=== PATIENT | male | born 1990 | race Caucasian/White ===

== ENCOUNTER 2022-10-19 07:37 | Day surgery (SDC) | payer MEDICAID, OTHER ==
[~2022-10-19 07:37] MED LIST: Marcaine Mpf 0.5% Vial 30 Ml ONE; XYLOCAINE 1% HCL 20 ML MDV ONE
[2022-10-19] MEDS ORDERED: EXPAREL 133 MG/10 ML VIAL IJ ONE (07:38)
[2022-10-19] MEDS ORDERED: Lactated Ringers 1,000 ML IV SCH (08:00)
[2022-10-19] MEDS ORDERED: CEFAZOLIN 2 GM-D5W BAG** 2 GM/50 ML ML IV SCH (08:00)
[2022-10-19 08:15] LABS: Hematocrit 35.5 % (42-50); Hemoglobin 11.3 g/dL (12.5-18.0); Mean Cell Volume 92.2 fL (78-100); Mean Corpuscular Hemoglobin 29.4 pg (26-32); Mean Corpuscular Hgb Concent. 31.8 g/dL (32-36); Mean Platelet Volume 8.7 fL (7.5-11.0); Platelet Count 371 x10^3/uL (150-450); Red Blood Count 3.85 x10^6/uL (4.1-5.6); Red Cell Distribution Width 12.8 % (11.5-14.0); White Blood Count 6.3 x10^3/uL (4.0-10.5)
[2022-10-19 08:30] LABS: ALBUMIN 4.2 g/dL (3.5-5.0); ALKALINE PHOSPHATASE 89 U/L (38-126); ANION GAP 14.3 MEQ/L (5-15); BLOOD UREA NITROGEN 17 mg/dL (9-20); CHLORIDE 103 mmol/L (98-107); Calcium 9.8 mg/dL (8.4-10.2); Carbon Dioxide 27 mmol/L (22-30); Creatinine 1 0.83 mg/dL (0.66-1.25); EST GLOMERULAR FILTRATION RATE > 60.0 ML/MIN; Glucose 141 mg/dL (74-106); INR 0.93 (0.8-3.0); PROTIME 10.2 SECONDS (9.4-12.5); PTT 26.2 SECONDS (25.1-36.5); Potassium 4.3 mmol/L (3.5-5.1); SGOT/AST 35 U/L (17-59); SGPT/ALT 25 U/L (0-50); SODIUM 139 mmol/L (137-145); Total Protein 7.4 g/dL (6.3-8.2)
[2022-10-19] MEDS ORDERED: Reglan 10 MG/2 ML IV ONE (09:18)
[2022-10-19] MEDS ORDERED: Pepcid 20 MG VIAL IV ONE ×2 (09:18→09:19)
[2022-10-19] MEDS ORDERED: Transderm Scop 1.5MG Patch TOP PRN (09:18)
[2022-10-19] MEDS ORDERED: Transderm Scop 1.5MG Patch ONE (09:19)
[2022-10-19] MEDS ORDERED: Reglan 10 MG/2 ML ONE (09:19)
[2022-10-19] MEDS ORDERED: Sensorcaine 0.25% 10 ML ONE (09:23)
[2022-10-19] MEDS ORDERED: Marcaine Mpf 0.5% Vial 30 Ml ONE (09:23)
[2022-10-19] MEDS ORDERED: SUBLIMAZE 100 MCG/2 ML ONE (09:25)
[2022-10-19] MEDS ORDERED: Versed 2 MG/2 ML Injection ONE ×2 (09:25→10:29)
[2022-10-19] MEDS ORDERED: Epinephrine Preservative Free 1 MG/ML ONE (09:26)
[2022-10-19] MEDS ORDERED: DIPRIVAN 200 MG/20 ML IV ONE (10:26)
[2022-10-19] MEDS ORDERED: Zemuron 100 MG/10 ML ONE ×6 (10:26→14:14)
[2022-10-19] MEDS ORDERED: Zofran 4 MG/2 ML VIAL ONE (10:27)
[2022-10-19] MEDS ORDERED: Decadron 4 MG INJ ONE ×2 (10:27→11:20)
[2022-10-19] MEDS ORDERED: Proair Hfa MDI IH ONE (10:40)
[2022-10-19] MEDS ORDERED: REMIFENTANIL HCL IV ONE (10:48)
[2022-10-19] MEDS ORDERED: Lactated Ringers 2,000 ML IV ONE (10:55)
[2022-10-19] MEDS ORDERED: TORAdol 30 mg Injection ONE (14:36)
--- NOTE | 2022-10-19 14:56 | XRAY ---
Indication: Right foot Charcot reconstruction. Intraoperative fluoroscopy provided for 9 minutes 49 seconds. 44 digital spot images submitted for interpretation ultimately demonstrates talocalcaneal and 1st/2nd tarsometatarsal fusion surgery with multiple fixation hardware. Correlate with intraoperative findings/report.
[2022-10-19 15:10] LABS: Appearance Clear (Clear); Bilirubin Negative (Negative); Blood Moderate (Negative); Glucose, Urine Negative (Negative); Ketones Negative (Negative); Leukocyte Esterase Negative (Negative); Nitrite Negative (Negative); Ph 5.5 (4.6-8.0); Protein,Urine Dip 100 (Negative); Specific Gravity 1.015 (1.005-1.030); Urobilinogen 0.2 mg/dL (0.2)
[2022-10-19 15:14] LABS: Epithelial Cells Few /HPF (None Seen)
[2022-10-19 15:15] LABS: Bacteria None Seen /HPF (None Seen)
[2022-10-19] MEDS ORDERED: Compazine 10 MG/2 ML ONE (15:24)
[2022-10-19 16:39] VITALS: BP 172/93; PULSE 107; O2SAT 97
--- NOTE | 2022-10-19 22:46 | XRAY ---
Nine minutes 49 seconds of fluoroscopy was used in surgery for a right foot Charcot reconstruction.
--- NOTE | 2022-10-22 12:21 | OP ---
SURGERY DATE/TIME: 10/19/2022 1026 PREOPERATIVE DIAGNOSES: 1) Charcot osteoarthropathy right foot. 2) Diabetes mellitus type I. 3) Diabetic peripheral neuropathy secondary to diabetes mellitus type I. 4) Pain right foot. 5) Gastrocnemius equinus. POSTOPERATIVE DIAGNOSES: 1) Charcot osteoarthropathy right foot. 2) Diabetes mellitus type I. 3) Diabetic peripheral neuropathy secondary to diabetes mellitus type I. 4) Pain right foot. 5) Gastrocnemius equinus. PROCEDURES: 1) Gastrocnemius resection. 2) Subtalar joint arthrodesis. 3) Talonavicular joint arthrodesis. 4) Multiple transverse tarsometatarsal joint arthrodesis. SURGEON: Michael Pressley DPM. TOUCH UP PAINTER: None. ANESTHESIA: General. HEMOSTASIS: Thigh tourniquet set to 350 mm of Mercury for 120 total tourniquet minutes. ESTIMATED BLOOD LOSS: Approximately 150 cc. MATERIALS: Two - 7.0 x 85 mm 16 mm threaded screws for the subtalar joint as well as 6.5 x 52 mm headless compression screw. One - 7.0 x 150 mm fully threaded beam, a 4.5 x 150 mm fully threaded beam for the second tarsometatarsal and subtalar joint as well as 7 hole one-third tubular plate with a combination of cortical and cancellous screws, 5 cc of Bonus Triad with bone marrow aspirate, 3-0 Nylon, 4-0 Monocryl, 2-0 Vicryl, 3-0 Nylon, 2-0 Nylon, two Suturegards. INJECTABLES: See anesthesia report for details. INDICATION FOR SURGERY: Scotty is a very pleasant 32-year-old male who presented to my office with complaint of right foot pain. The patient indicates that he is fully neuropathic. In his young age, he is a controlled type I diabetic. However, he is also neuropathic as a result of the diabetes and to some degree alcoholic neuropathy as well. From that standpoint the patient developed Charcot osteoarthropathy. He had a significant amount of trouble based on his outdated insurance being sent to multiple providers and being rejected. The patient presented to my office with concerns of the right foot pain and the fact that there has been a delay in care. The patient was informed of his pathology and was notified that he does have Charcot osteoarthropathy which is secondary to his peripheral neuropathy. The patient was presented options in regards to treatment. Discussion was held at length at the risks and complications of Charcot osteoarthropathy and the potential outcomes. With our discussion the patient was made to understand that due to the fact that his deformity was unstable. However in the process of consolidating, the patient would likely need surgical intervention. The patient has noticed a lateral deviation of this forefoot and pain underneath his cuboid at this time which was different than several weeks ago resulting in further loss of his arch and worsening Charcot osteoarthropathy. Given this discussion and options that were presented, the patient and mother agreed to proceeding with surgical intervention. All risks, complications and benefits of surgical intervention were discussed at length with the patient which included but are not limited to infection, hematoma, seroma, possibility of delayed wound healing, nonskin healing, possibility of nonbone healing and delayed bone healing. There is also the possibility of hardware failure and need for further surgical intervention at a later date. The patient understands there are no guarantees provided as to the outcome of surgical intervention. It is with that he decided to proceed. DESCRIPTION OF PROCEDURE AND FINDINGS: The patient is brought into the OR and placed on the OR table in the supine position. After having had a popliteal and saphenous block to the right lower extremity in the postoperative anesthesia care unit area. The patient was placed under general anesthesia and a well-padded thigh tourniquet was applied to the patient's right thigh. The tourniquet was set to 350 mm of Mercury. At this time the right lower extremity was prepped and draped in the typical sterile fashion and lowered onto the surgical field. At this time attention was directed to the posterior medial aspect of the right calf where a linear incision was made at the palpable dell of the gastrocnemius muscle belly. This incision was approximately 3 cm in length. A skin incision was made and blunt dissection was utilized to carry down to the crural fascia. The crural fascia was then incised utilizing a 15 blade. At this time blunt dissection carried to the opposite end of the posterior aspect of the calf. A pediatric speculum was then introduced into the posterior aspect of the calf rotating 90 degrees and the gastrocnemius aponeurosis then clearly identified. At this time a new 10 blade was then utilized to gastrocnemius until the muscle belly was seen underneath. The incision was then checked to make sure that the procedure was complete. Dorsiflexion of the foot improved significantly at this time. At this time copious amounts of sterile saline were utilized to flush the site. The pediatric speculum was then removed from the surgical site. The crural fascia was repaired utilizing 4-0 Monocryl and then the subcutaneous skin edges were once again was coapted utilizing 4-0 Monocryl in a simple buried-type fashion and then 3-0 Nylon was utilized in a horizontal mattress-type fashion to coapt the subcutaneous skin edges. At this time attention was directed to the subtalar joint where from the distal tip of the fibula until the anterior process of the ankle, a skin marker was utilized to draw out the incision planning. Esmarch was utilized to exsanguinate the leg. Tourniquet was inflated at this time. Attention was then directed to the line that was previously drawn from the tip of the fibula to the anterior fossa of the calcaneus. Incision was made deepening along the plane utilizing a combination of sharp and blunt dissection making sure not to damage any neurovascular structures along the way. Subtalar joint was identified. Osteotome was utilized to resect the cervical ligament within the subtalar joint gaining excellent exposure to the subtalar joint. A significant amount of time was utilized to resect the joint surfaces denuding the surfaces of the cartilage until the subchondral plate was exposed. Copious amounts of sterile saline were utilized to flush the surgical site and then a 2.0 mm drill, curved osteotome as well as curette were utilized to fish scale and increase surface area as well as increase vascular ingrowth through the arthrodesis site. Temporary fixation was held in place utilizing two K-wires which were checked under fluoroscopic guidance from the calcaneal, axial and the lateral standpoint. At this time a 7.0 x 85 mm headed screw was introduced from the posterior inferior calcaneus into the subtalar joint gaining adequate compression through the subtalar joint at this time. This was checked under multiple views and deemed to be in adequate position. At this time attention was then directed to the medial aspect of the surgical incision where the medial aspect of the foot under fluoroscopic guidance surgical planning was maintained. The incision was carried down being careful not to damage any neurovascular structures along the way at the inner aspect of the foot at the dorsomedial aspect being sure to make good exposure to the talonavicular joint, the naviculocuneiform, as well as the tarsometatarsal joints 1 and 2. The dislocation of the first metatarsal was identified and the cartilage was resected first. The joint was then prepped and the area was cleansed of any nonviable bone. A tenaculum was utilized at this time to see the mobility of the tarsometatarsal joint which was adequate in a sagittal plane as well as within the transverse plane, this was clamped down. Attention was then directed to the talonavicular and naviculocuneiform joints where the same process of curettage of the cartilage, removal of the cartilage was performed until the subchondral plate was exposed. Copious amounts of sterile saline flushing out the site and then fenestration utilizing a 2.0 mm drill bit. Osteotome was utilized to increase surface area and curette was utilized to expose the subchondral plate. From that standpoint a large 7.0 x 160 mm fully threaded beam was from the distal tip of the first metatarsal into the talus this was done under multiple views and fluoroscopic guidance gaining excellent compression. The same process was carried out with 4.5 x 150 mm fully threaded cannulated screw in the second metatarsal. Following this a seven hole one-third tubular plate was introduced from the dorsomedial aspect of the medial column in order for better apposition and stability of the surgical site. A combination of cancellous and cortical screws were utilized to gain better stability. At this time copious amounts of sterile saline were utilized to flush the surgical site. 2-0 Vicryl was utilized to coapt the subcutaneous edges of the skin in a simple buried-type fashion. Suturegards were utilized to reduce tension to the surgical site utilizing 2-0 vertical mattress-type fashion and the remainder of the incisions were coapted utilizing horizontal mattress-type sutures with the exception of the posterior heel which was coapted utilizing a simple interrupted. Following this, the leg was cleansed with copious amounts of sterile saline. A dressing consisting of Betadine, Adaptic, 4x4, Kerlix and a well-padded posterior splint with Sugar-Tong was applied to the patient's right lower extremity. The patient was then reversed from anesthesia and returned to the postoperative anesthesia care unit with vital signs stable and vascular status intact. The patient handled the anesthesia as well as the procedure without significant complication. Postoperative orders as indicated in the patient's discharge chart.
== END 2022-10-19 17:00 | disposition home or self-care (01) ==
LOC: SDC 07:37
PROVIDERS: ATTEND Podiatrist Foot & Ankle Surgery
DX: E10.610 Type 1 diabetes mellitus with diabetic neuropathic arthropathy (principal); E10.40 Type 1 diabetes mellitus with diabetic neuropathy, unspecified; M79.671 Pain in right foot; M21.961 Unspecified acquired deformity of right lower leg
CPT/HCPCS: 27687; 28725; 28730; 28740; 36415; 64447; 64450; 73630; 76000; 76937; 76942; 80053; 81001; 82947; 83036; 85027; 85610; 85730; 87086; C1713; C1762; J0171; J0690; J1100; J1885; J2250; J2405; J2704; J3010; A9270-GY